=== PATIENT | female | born 1990 | race Caucasian/White ===

== ENCOUNTER 2017-05-05 12:12 | Emergency (ER) | payer OTHER ==
[2017-05-05 12:22] VITALS: BP 123/83; PULSE 78; TEMP 98.5; BMI 37.5
[2017-05-05] MEDS ORDERED: IBUPROFEN 100 MG/5 ML UNIT DOSE CUPS PO ONE (12:52)
[2017-05-05] MEDS ORDERED: DEXAMETHASONE SOD PHOSPHATE 10 MG/1 ML VIAL IM ONE (12:52)
--- NOTE | 2017-05-05 12:55 | PDOC ---
History of Present Illness - General Chief Complaint: Sore Throat Stated Complaint: THROAT PAIN Time Seen by Provider: 05/05/17 12:46 History Source: Patient Exam Limitations: No Limitations - History of Present Illness Initial Comments: 05/05/17 12:52 Patient came to emergency department for evaluation of severe sore throat 5 days. States has felt fevers and chills and worsening difficulty swallowing. Denies earache, rashes. No one else at home is sick. 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 denies: chest pain/soreness Past History - Travel Traveled outside of the country in the last 30 days: No Close contact w/someone who was outside of country & ill: No - Past Medical History Allergies/Adverse Reactions: Allergies Allergy/AdvReac Type Severity Reaction Status Date / Time No Known Allergies Allergy Verified 05/05/17 12:21 Home Medications: Ambulatory Orders Azithromycin [Zithromax -] 250 mg PO UTDICT #6 tab 05/05/17 Other medical history: NONE - Reproductive History (#): 2 Para: 1 - Suicide/Smoking/Psychosocial Hx Smoking History: Never smoked Hx Alcohol Use: No Drug/Substance Use Hx: No Substance Use Type: None Respiratory Specific PMHX - Complaint Specific PMHX Bronchitis: No Pneumonia: No Review of Systems - Review of Systems Able to Perform ROS?: Yes Is the patient limited Romansh proficient: Yes Constitutional: Yes: Symptoms Reported, See HPI, Chills, Fever, Loss of Appetite , Malaise HEENTM: Yes: Symptoms Reported, See HPI, Nose Congestion, Throat Swelling, Difficulty Swallowing Respiratory: Yes: See HPI. No: Symptoms reported, Cough, Wheezing ABD/GI: Yes: See HPI. No: Symptoms Reported, Nausea Integumentary: Yes: See HPI. No: Symptoms Reported, Rash Neurological: Yes: Symptoms reported, See HPI, Headache All Other Systems: Reviewed and Negative *Physical Exam - Vital Signs Last Vital Signs Temp Pulse Resp BP Pulse Ox 98.5 F 78 20 123/83 98 05/05/17 12:19 05/05/17 12:19 05/05/17 12:19 05/05/17 12:19 05/05/17 12:19 - Physical Exam General Appearance: Yes: Nourished, Appropriately Dressed, Apparent Distress, Mild Distress HEENT: positive: HERMINIA, TMs Normal (congested but landmarks easily visualized), Muffled/Hoarse voice, Tonsillar Exudate (airway is patent however tonsils are grossly enlarged), Tonsillar Erythema, Nasal Congestion, Rhinorrhea. negative: Normal ENT Inspection, Normal Voice, Pharynx Normal Neck: positive: Supple, Lymphadenopathy (R), Lymphadenopathy (L) Respiratory/Chest: positive: Lungs Clear, Normal Breath Sounds Gastrointestinal/Abdominal: positive: Normal Bowel Sounds, Soft. 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 Patient instructed if a different type of strep results tomorrow from throat culture or the next day, prescription for antibiotics will be called in. Otherwise is probable viral in nature and no antibiotics required. We'll treat conservatively but give watch and wait Zithromax and instructions for its initiation *DC/Admit/Observation/Transfer Diagnosis at time of Disposition: Pharyngitis Qualifiers: Pharyngitis/tonsillitis etiology: unspecified etiology Qualified Code(s): J02.9 - Acute pharyngitis, unspecified - Discharge Dispostion Disposition: HOME Condition at time of disposition: Stable Admit: No - Referrals Referrals: STAFF,NOT ON [Primary Care Provider] - - Patient Instructions Printed Discharge Instructions: DI for Viral Pharyngitis Additional Instructions: Rest, drink lots of fluids: Teas, water, soups, Pedialyte Saltwater gargles Steamy showers/seem to face break up mucus Avoid contact with others until fevers and cough resolved Lots of handwashing and good hygiene Continue [id number] medications for symptomatic relief Tylenol or Motrin for fever and pain You have been given prescription for watch and wait azithromycin. If fevers persist, or worsen. Swelling worsens or other symptoms worsen start and follow- up with your physician following week for reevaluation as needed Followup with private physician in one to 2 days as needed Return to emergency department for worsened symptoms, fevers, dehydration - Post Discharge Activity Forms/Work/School Notes: Back to Work
[2017-05-05] MEDS ORDERED: IBUPROFEN 400 MG TABLET (FP) PO ONE (12:57)
[2017-05-05] MEDS ORDERED: DEXAMETHASONE SOD PHOSPHATE 10 MG/1 ML VIAL ONE (12:57)
== END 2017-05-05 14:06 | disposition home or self-care (01) ==
LOC: JERFT 12:12
PROC: 3E0233Z Introduction of Anti-inflammatory into Muscle, Percutaneous Approach (ICD-10-PCS; principal; 2017-05-05)
DX: J02.9 Acute pharyngitis, unspecified (principal)
CPT/HCPCS: 87070; 87430; 99281-25

== ENCOUNTER 2018-07-21 11:31 | Emergency (ER) | payer OTHER ==
[2018-07-21 11:44] VITALS: BP 113/66; PULSE 91; TEMP 99; BMI 39.9
--- NOTE | 2018-07-21 11:59 | PDOC ---
History of Present Illness - General Chief Complaint: Cold Symptoms Stated Complaint: Cold Symptoms Time Seen by Provider: 07/21/18 11:53 History Source: Patient Exam Limitations: No Limitations - History of Present Illness Initial Comments: Patient is a 28-year-old female who states over the past 2 week she has had sinus pressure, sore throat and a productive cough. She denies recent travel, denies sick contacts, denies taking any recent antibiotics. She denies fever/ chills. Patient denies history of asthma. She denies attempting over-the- counter medications. She denies any aggravating or relieving factors. 07/21/18 11:54 Past History - Travel Traveled outside of the country in the last 30 days: No Close contact w/someone who was outside of country & ill: No - Past Medical History Allergies/Adverse Reactions: Allergies Allergy/AdvReac Type Severity Reaction Status Date / Time No Known Allergies Allergy Verified 05/05/17 12:21 Home Medications: Ambulatory Orders Azithromycin [Zithromax 250mg Tablets -] 250 mg PO UTDICT #6 tab 07/21/18 COPD: No - Reproductive History (#): 2 Para: 1 - Suicide/Smoking/Psychosocial Hx Smoking History: Never smoked Hx Alcohol Use: No Drug/Substance Use Hx: No Substance Use Type: None Review of Systems - Review of Systems Able to Perform ROS?: Yes Constitutional: No: Chills, Fever HEENTM: No: Difficulty Swallowing Respiratory: Yes: Cough. No: Shortness of Breath, Stridor, Wheezing Cardiac (ROS): No: Chest Pain All Other Systems: Reviewed and Negative *Physical Exam - Vital Signs Last Vital Signs Temp Pulse Resp BP Pulse Ox 99.0 F 91 H 16 113/66 98 07/21/18 11:35 07/21/18 11:35 07/21/18 11:35 07/21/18 11:35 07/21/18 11:35 - Physical Exam Comments: Constitutional: VS stated, pt appears in no apparent distress; sitting in chair. Skin: Warm and dry. Intact, no lesions or excoriations. Head: Normocephalic; atraumatic Eyes:conjunctiva pink without injection or discharge. Ears: No tenderness present. Canals without injection or discharge; TM clear, no retractions or bulging. Nose: Patent, mucosa pink. No drainage. Sinuses: No tenderness over frontal and maxillary sinuses. Throat: Oropharynx with pink and moist mucosa. Dentition good. No pharyngeal edema; erythema or exudate. Tongue normal, no fasciculations. Airway Patent. Hypoglossal area is soft. Uvula is midline. No trismus. Neck: Supple, non-tender, with full ROM, trachea midline, no anterior/posterior cervical chain lymphadenopathy, thyroid nonpalpable. No stridor or bruits. Chest: Normal AP diameter, symmetrical excursions bilaterally, no retractions or bulging of the intercostal spaces. No pain or tenderness noted on palpation. Lungs: Bilateral breath sounds clear upon auscultation. No adventitious breath sounds. Heart: Regular rate and rhythm, S1/S2 auscultated. No murmurs, rubs, or gallops. No visible pulsations, heaves, or lifts on precordium. Musculoskeletal: Moves all extremities without difficulty. Neurologic: Awake, alert. Conversation fluent. Psych: Appropriate affect 07/21/18 11:55 Moderate Sedation - Procedure Monitoring Vital Signs: Procedure Monitoring Vital Signs Temperature 99.0 F 07/21/18 11:35 Pulse Rate 91 H 07/21/18 11:35 Respiratory Rate 16 07/21/18 11:35 Blood Pressure 113/66 07/21/18 11:35 O2 Sat by Pulse Oximetry (%) 98 07/21/18 11:35 *DC/Admit/Observation/Transfer Diagnosis at time of Disposition: Bronchitis - Discharge Dispostion Disposition: HOME Decision to Admit order: No - Prescriptions Prescriptions: Azithromycin [Zithromax 250mg Tablets -] 250 mg PO UTDICT #6 tab - Referrals - Patient Instructions Printed Discharge Instructions: DI for Acute Bronchitis - Post Discharge Activity
== END 2018-07-21 12:18 | disposition home or self-care (01) ==
LOC: JER 11:31
DX: J40 Bronchitis, not specified as acute or chronic (principal)
CPT/HCPCS: 99281-25

== ENCOUNTER 2018-10-25 07:36 | Emergency (ER) | payer OTHER ==
[2018-10-25 07:51] VITALS: BP 112/64; PULSE 75; TEMP 98.2; BMI 31.1
[2018-10-25 08:23] LABS: URINE APPEARANCE CLEAR; URINE BILIRUBIN NEGATIVE (<2.0 mg/dL); URINE COLOR YELLOW; URINE GLUCOSE (UA) NEGATIVE (NEGATIVE); URINE KETONE NEGATIVE (NEGATIVE); URINE LEUK ESTERASE NEGATIVE (NEGATIVE); URINE NITRITE NEGATIVE (NEGATIVE); URINE PROTEIN NEGATIVE (NEGATIVE); URINE UROBILINOGEN NEGATIVE mg/dL (0.2-1.0)
--- NOTE | 2018-10-25 08:27 | PDOC ---
History of Present Illness - General Chief Complaint: Headache Stated Complaint: HEADACHE Time Seen by Provider: 10/25/18 08:13 History Source: Patient Past History - Past Medical History Allergies/Adverse Reactions: Allergies Allergy/AdvReac Type Severity Reaction Status Date / Time No Known Allergies Allergy Verified 05/05/17 12:21 Home Medications: Ambulatory Orders Azithromycin [Zithromax 250mg Tablets -] 250 mg PO UTDICT #6 tab 07/21/18 COPD: No - Reproductive History (#): 2 Para: 1 - Suicide/Smoking/Psychosocial Hx Smoking History: Never smoked Hx Alcohol Use: No Drug/Substance Use Hx: No Substance Use Type: None Review of Systems - Review of Systems Constitutional: No: Chills, Fever HEENTM: No: Blurred Vision Neurological: Yes: Headache, Dizziness *Physical Exam - Vital Signs Last Vital Signs Temp Pulse Resp BP Pulse Ox 98.2 F 75 16 112/64 98 10/25/18 07:43 10/25/18 07:43 10/25/18 07:43 10/25/18 07:43 10/25/18 07:43 - Physical Exam General Appearance: Yes: Appropriately Dressed. No: Apparent Distress HEENT: positive: Normal Voice Respiratory/Chest: negative: Respiratory Distress Integumentary: positive: Dry, Warm Neurologic: positive: Fully Oriented, Alert, Normal Mood/Affect, Motor Strength 5/5 Moderate Sedation - Procedure Monitoring Vital Signs: Procedure Monitoring Vital Signs Temperature 98.2 F 10/25/18 07:43 Pulse Rate 75 10/25/18 07:43 Respiratory Rate 16 10/25/18 07:43 Blood Pressure 112/64 10/25/18 07:43 O2 Sat by Pulse Oximetry (%) 98 10/25/18 07:43 Medical Decision Making - Medical Decision Making 10/25/18 08:26 28 yo F, no sig hx, here w/ headache. Pt states for the past 5 days, she has had frontal CAMP radiating to occiput on both sides, feels "like someone punching me" per pt, constant and 9/10, no exacerbating factors and not improved w/ OTC meds. Also reports photophobia and intermittent dizziness. No vertigo, visual changes, focal weakness, uri sxs, f/c. No h/o simian headache. Of note, pt s/p Essure (non-surgical permanent sterilization) 4 years ago. see exam CAMP No e/o serious pathology Possible migainous vs tension vs other cause of non-emergent CAMP S/p sterilization as noted above Well robert and stable -pain control/reassess 10/25/18 08:51 10/25/18 09:31 Pt reports improvement w/ meds. Declines waiting for upreg, wants call back. Stable for discharge w/ neuro referral if CAMP persists *DC/Admit/Observation/Transfer Diagnosis at time of Disposition: Headache Qualifiers: Headache type: unspecified Headache chronicity pattern: acute headache Intractability: intractable Qualified Code(s): R51 - Headache - Discharge Dispostion Disposition: HOME Condition at time of disposition: Improved - Referrals Referrals: Dillan Sanches MD [Staff Physician] - - Patient Instructions Printed Discharge Instructions: DI for Headache Additional Instructions: Thae cause of your headache is unclear at this time and if headache persists, you will need further evaluation with a neurologist. Call Dr Sanches or neuro for an appointment as needed. Take Motrin or Tylenol as needed for pain in the meantime - Post Discharge Activity Forms/Work/School Notes: Back to Work
[2018-10-25] MEDS ORDERED: METOCLOPRAMIDE HCL INJECTION 10 MG/2 ML VIAL IVPB ONE (08:28)
[2018-10-25] MEDS ORDERED: KETOROLAC TROMETHAMINE 30 MG/1 ML VIAL IVPUSH ONE (08:28)
[2018-10-25] MEDS ORDERED: METOCLOPRAMIDE HCL INJECTION 10 MG/2 ML VIAL ONE (08:31)
[2018-10-25] MEDS ORDERED: KETOROLAC TROMETHAMINE 30 MG/1 ML VIAL ONE (08:32)
== END 2018-10-25 10:57 | disposition home or self-care (01) ==
LOC: JER 07:36
PROC: 3E033NZ Introduction of Analgesics, Hypnotics, Sedatives into Peripheral Vein, Percutaneous Approach (ICD-10-PCS; principal; 2018-10-25)
PROC: 3E033GC Introduction of Other Therapeutic Substance into Peripheral Vein, Percutaneous Approach (ICD-10-PCS; 2018-10-25)
DX: R51 Headache (principal)
CPT/HCPCS: 81003; 84703; 96374; 96375; 99282-25

== ENCOUNTER 2022-12-17 04:00 | Day surgery (SDC) | payer OTHER ==
[2022-12-15 15:54] VITALS: BMI 30.2
[2022-12-17] MEDS ORDERED: PROPOFOL 20 ML ONE (11:49)
[2022-12-17] MEDS ORDERED: LIDOCAINE HCL/PF 2% SDV 5ML VIAL ONE (11:49)
[2022-12-17] MEDS ORDERED: MIDAZOLAM HCL 2 MG/2 ML SINGLE DOSE VIAL ONE (11:50)
[2022-12-17] MEDS ORDERED: SUCCINYLCHOLINE CHLORIDE 200 MG/10 ML SYRINGE ONE (11:50)
[2022-12-17] MEDS ORDERED: ROCURONIUM BROMIDE 50 MG/5 ML SYRINGE ONE (12:49)
[2022-12-17] MEDS ORDERED: ACETAMINOPHEN INJECTION 100 ML IVPB ONE (12:52)
[2022-12-17] MEDS ORDERED: ceFAZolin SODIUM 1 GM VIAL IVPB ONE (13:15)
[2022-12-17] MEDS ORDERED: ACETAMINOPHEN 1000 MG/100 ML BAG IVPB ONE (13:40)
[2022-12-17] MEDS ORDERED: NEOSTIGMINE METHYLSULFATE 0.5 MG/1 ML - 10 ML MDV ONE (13:49)
[2022-12-17] MEDS ORDERED: ONDANSETRON 4 MG/2 ML VIAL IVPUSH PRN (14:07)
[2022-12-17] MEDS ORDERED: oxyCODONE HCL 5 MG TABLET PO PRN (14:07)
[2022-12-17] MEDS ORDERED: LACTATED RINGERS SOLUTION 1,000 ML IV SCH (14:15)
[2022-12-17 15:50] VITALS: RESP 18
[2022-12-17 17:01] VITALS: BP 115/71; PULSE 83; TEMP 97.7
== END 2022-12-17 16:50 | disposition home or self-care (01) ==
LOC: JASU-SURG 04:00
PROVIDERS: ATTEND Otolaryngology
PROC: 0CTQ0ZZ Resection of Adenoids, Open Approach (ICD-10-PCS; 2022-12-17)
PROC: 0CTPXZZ Resection of Tonsils, External Approach (ICD-10-PCS; principal; 2022-12-17 14:00)
DX: J35.03 Chronic tonsillitis and adenoiditis (principal)
CPT/HCPCS: 81025; 94760